=== PATIENT | female | born 2000 | race Caucasian/White ===

== ENCOUNTER → 2021-05-23 | Outpatient (CLI) | payer OTHER | LOC: KOH-I 10:20 | DX: M79.672 Pain in left foot (principal); M25.572 Pain in left ankle and joints of left foot | CPT/HCPCS: 73610; 73630 ==

== ENCOUNTER → 2021-06-04 | Outpatient (CLI) | payer OTHER | LOC: KOH-I 09:00 | DX: M25.372 Other instability, left ankle (principal); S93.492A Sprain of other ligament of left ankle, initial encounter; X58.XXXA Exposure to other specified factors, initial encounter; R93.6 Abnormal findings on diagnostic imaging of limbs | CPT/HCPCS: 73721 ==